=== PATIENT | female | born 1970 | race Caucasian/White ===

== ENCOUNTER 2019-02-14 07:15 | Outpatient (CLI) | payer OTHER, SELFPAY ==
--- NOTE | 2019-02-14 07:11 | XR_ITS ---
WS: [id number] Right wrist, 3 views including navicular views, 02/14/2019 Clinical Data: PT FELL; C/O PAIN RT WRIST -DIFFICULTY WITH FLEXION Comparison: None. Findings: No fractures or dislocations are seen. The carpal bones are intact. There is no soft tissue swelling. The distal radius and ulna are not remarkable. XR/XR wrist RT min 3V* [id number] Impression: Negative right wrist.
--- NOTE | 2019-02-14 14:14 | W.ED.GENADLT ---
[facility] ED PFSH: Statuses (acute, chronic, etc) shown below reflect problem list status as previously entered and may not be historically accurate Medical History (Updated 02/14/19 @ 09:35 by Rehana Tatum MD) Depression (Acute) GERD (gastroesophageal reflux disease) (Acute) Hypertension (Acute) Obesity (Acute) Surgical History (Updated 02/14/19 @ 09:35 by Rehana Tatum MD) History of cholecystectomy (Acute) History of incision and drainage (Acute) perianal abscess, subsequent fistulatomy History of toe surgery (Acute) left 2nd Hx of arthroscopic knee surgery (Acute) bilateral S/P ACL reconstruction (Acute) bilateral Family History (Updated 02/14/19 @ 09:36 by Rehana Tatum MD) Brother Cancer, Onset Age: 40 testicular Father Cancer, Onset Age: 67 colon Lung disease copd Diabetes type 2 Hyperlipidemia Hypertension Mother Stroke Hyperlipidemia Hypertension Social History (Updated 02/14/19 @ 09:38 by Rehana Tatum MD) Smoking and tobacco status: current every day smoker cigarettes Alcohol intake: former Year of sobriety/quit date alcohol: 2012 Household members: spouse Housing: House Marital status: Course ED course: 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 The distal radius appears intact there is a vague lucency in the body of the navicular concerning for a fracture. She does not have significant pain with palpation of the anatomical snuffbox but has severe pain with axial loading of the thumb. Recommend that she use a thumb spica splint and be seen by Ortho she may need a CT or MRI will make arrangements like texted Dr. Bray who responded and she will contact Dr. Bradshaw to make an appointment at their office to provide definitive care. Discharge Plan Discharge Prescriptions: No Action losartan 100 mg tablet 100 mg PO ONCE RF: 0 spironolacton-hydrochlorothiaz [Aldactazide] 25-25 mg tablet 1 tab PO ONCE RF: 0 Dexilant 60 mg capsule,biphase delayed releas 60 mg PO ONCE RF: 0 escitalopram oxalate 20 mg tablet 20 mg PO ONCE RF: 0 epinephrine 0.3 mg/0.3 mL auto-injector 0.3 mg IM ONCE PRNRF: 0 (DME) FAST FORM THUMB SPICA SPLINT Qty: 1 RF: 0 Coding Level of Care Code ED Translator Interpreter for Marilyn Sampson
== END 2019-02-14 07:16 | disposition home or self-care (01) ==
PROVIDERS: Family Provider Internal Medicine; Visit Provider Family Medicine
DX: M25.531 Pain in right wrist (principal)
CPT/HCPCS: 73110

== ENCOUNTER 2019-02-14 11:35 | Outpatient (CLI) | payer OTHER, SELFPAY | END 2019-02-14 11:36 | disposition home or self-care (01) | LOC: SPT 11:36 | PROVIDERS: Family Provider Internal Medicine; PCP Psychiatry & Neurology Neurology; Visit Provider Specialist | DX: Z46.89 Encounter for fitting and adjustment of other specified devices (principal) | CPT/HCPCS: L3982 ==

== ENCOUNTER 2019-02-21 08:06 | Outpatient (CLI) | payer OTHER, SELFPAY ==
--- NOTE | 2019-02-21 08:00 | MR_ITS ---
WS: [id number] INDICATION: Right wrist pain fall. TECHNIQUE: MRI of the right wrist without gadolinium enhancement. Coronal T1, PD, STIR, 3-D FSPGR, ax ial T1, and sagittal T1 imaging was obtained. Axial PD and T2 imaging with fat saturation technique. Navicular displaced views. FINDINGS: Distal radius is normal in appearance. Well-corticated chronic ulnar styloid process fractu re. No edema in the Distal radius or radial styloid. Scaphoid is normal in appearance. No evidence of scaphoid fracture. No edema in the scaphoid. Scapholunate interval measures approximately 2.2 mm. No evidence of scapholunate ligamentous edema or injury. Small amount of edema in the underlying dorsal subcutaneous soft tissues at the area of palpable marker. This is just superficial to the capitate. Associated edema in the extensor retinaculum and dorsal intercarpal ligament likely due to contusion. Normal underlying bone marrow signal in the capitate. Radial collateral ligament and ulnar collateral ligaments appear intact. Normal extensor carpi ulnari s. Mild degenerative changes involving the proximal and distal carpal row. Carpal tunnel is normal in appearance. Normal extensor and flexor compartment tendons. Proximal metacarpals appear normal. No b one marrow edema. MR/MR wrist RT wo con* [id number] IMPRESSION: 1. No evidence of distal radial or scaphoid fracture. No edema within the sca phoid. 2. Mild widening of the scapholunate interval measuring 2.2 mm although no yasmine dence of ligamentous injury or edema. 3. Edema along the extensor retinaculum and dorsal intercarpal ligament and ov erlying subcutaneous soft tissues at the level of the capitate likely due to co ntusion. Bone marrow signal in the capitate appears normal. This is in the area of palpable marker. 4. Mild cystic degenerative changes in the proximal and distal carpal row. 5. Well-corticated chronic ulnar styloid process fracture.
== END 2019-02-21 08:07 | disposition home or self-care (01) ==
PROVIDERS: Family Provider Internal Medicine; PCP Internal Medicine; Visit Provider Orthopaedic Surgery
DX: M19.031 Primary osteoarthritis, right wrist (principal); M84.431A Pathological fracture, right ulna, initial encounter for fracture; M25.531 Pain in right wrist; R60.9 Edema, unspecified
CPT/HCPCS: 73221

== ENCOUNTER → 2019-04-11 12:11 | Outpatient (BNVA) | payer OTHER, SELFPAY | PROVIDERS: Family Provider Internal Medicine; PCP Internal Medicine; Visit Provider Family Medicine | DX: E11.9 Type 2 diabetes mellitus without complications (principal); I10 Essential (primary) hypertension; K21.9 Gastro-esophageal reflux disease without esophagitis; F33.42 Major depressive disorder, recurrent, in full remission; F17.219 Nicotine dependence, cigarettes, with unspecified nicotine-induced disorders | CPT/HCPCS: 82044 ==

== ENCOUNTER → 2019-05-14 09:00 | Outpatient (BNVA) | payer OTHER, SELFPAY | PROVIDERS: Family Provider Internal Medicine; PCP Internal Medicine; Visit Provider Family Medicine | DX: Z12.31 Encounter for screening mammogram for malignant neoplasm of breast (principal); I10 Essential (primary) hypertension; Z01.419 Encounter for gynecological examination (general) (routine) without abnormal findings; E55.9 Vitamin D deficiency, unspecified | CPT/HCPCS: 80053; 80061; 82306; 85025; 88175 ==

== ENCOUNTER → 2019-08-06 13:59 | Outpatient (BNVA) | payer OTHER, SELFPAY | PROVIDERS: Family Provider Internal Medicine; PCP Internal Medicine; Visit Provider Family Medicine | DX: E55.9 Vitamin D deficiency, unspecified (principal); E78.5 Hyperlipidemia, unspecified | CPT/HCPCS: 80053; 82306 ==

== ENCOUNTER 2020-04-27 02:01 | Outpatient (CLI) | payer OTHER, SELFPAY ==
[2020-04-27 02:50] LABS: HIV 1 & 2 Antibody Non-Reactive (Non-Reactiv); HIV 1 & 2 Antigen Non-Reactive (Non-Reactiv)
[2020-04-27 03:01] LABS: Hepatitis A Antibody IgM Non-Reactive (Nonreactive); Hepatitis B Core IgM Non-Reactive (Nonreactive); Hepatitis B Surface Antigen Non-Reactive (Nonreactive); Hepatitis C Virus Antibody Non-Reactive (Nonreactive)
== END 2020-04-27 02:02 | disposition home or self-care (01) ==
LOC: LAB 02:07
PROVIDERS: PCP Internal Medicine; Visit Provider Hospitalist
DX: Z20.9 Contact with and (suspected) exposure to unspecified communicable disease (principal)
CPT/HCPCS: 80074; 87806

== ENCOUNTER 2020-10-26 14:31 | Outpatient (CLI) | payer OTHER, SELFPAY ==
[2020-10-27 15:25] LABS: Coronavirus Test Green County Not Detected
== END 2020-10-26 14:32 | disposition home or self-care (01) ==
LOC: LAB 14:34
PROVIDERS: PCP Internal Medicine; Visit Provider Family Medicine
DX: R05 Cough (principal); J06.9 Acute upper respiratory infection, unspecified
CPT/HCPCS: 87635

== ENCOUNTER 2020-12-23 10:24 | Outpatient (CLI) | payer OTHER, SELFPAY ==
--- NOTE | 2020-12-23 10:30 | MM_ITS ---
WS: [id number] Exam: [place] [id number] Date/Time of Exam: 12/23/2020 10:34 AM Reason For Exam: screening mammogram VIEWS: MLO and CC views both breasts. Comparison made with prior exam of 09/08/2014. Findings: There was no sign of mass, architectural distortion or suspicious calcification in either breast. Fa tty MM/[place] [id number] Impression: BI-RADS: 2-Benign FOLLOW-UP: 1 Year Follow-up This mammogram was also analyzed by the Computer Aided Detection System R2 Imag e Medical Data Analyst.
== END 2020-12-23 10:25 | disposition home or self-care (01) ==
LOC: RADSHAW 10:26
PROVIDERS: PCP Family Medicine; Visit Provider Family Medicine
DX: Z12.31 Encounter for screening mammogram for malignant neoplasm of breast (principal)
CPT/HCPCS: 77067

== ENCOUNTER 2020-12-30 11:15 | Outpatient (CLI) | payer OTHER, SELFPAY ==
--- NOTE | 2020-12-30 11:20 | CT_ITS ---
WS: [id number] LDCT LUNG CANCER SCREENING HISTORY: LOW DOSE CT SCREENING TECHNIQUE: Axial imaging performed from the apices to 1 cm below the costophrenic angles. Coronal and sagittal reformats are submitted with axial MIP series. All CT scans at [facility] use at least one of these dose optimization techniques: automated exposure control; mA and/or kV adjustment per patient size (includes targeted exams where dose is matched to clinical indication); or iterativ e reconstruction. DLP: 61.36 mGy.cm DIvol: 1.58 mGy,1.58 mGy COMPARISON: None available. Diagnostic quality: Satisfactory Lung Nodules: 4 mm nodule in the posterior RIGHT lower lobe, image 127 of series 3. There is also a b enign granuloma and in the RIGHT lower lobe. Lungs: Normally aerated lungs. No effusion. Heart: Normal size heart. No pericardial effusion. Other findings: Minimal atherosclerotic plaque within the aorta. Small hiatal hernia. Prior cholecyst ectomy. CT/CT lung screening [id number] IMPRESSION: LUNG-RADS: 3-Probably Benign FOLLOW UP: 6 Month LDCT OTHER FINDINGS (S MODIFIER): None.
== END 2020-12-30 11:16 | disposition home or self-care (01) ==
PROVIDERS: PCP Family Medicine; Visit Provider Family Medicine
DX: Z12.2 Encounter for screening for malignant neoplasm of respiratory organs (principal); F17.219 Nicotine dependence, cigarettes, with unspecified nicotine-induced disorders; K44.9 Diaphragmatic hernia without obstruction or gangrene; Z90.49 Acquired absence of other specified parts of digestive tract
CPT/HCPCS: 71271

== ENCOUNTER 2021-11-26 10:18 | Outpatient (CLI) | payer OTHER, SELFPAY ==
[2021-11-26 11:07] LABS: Basophils % 0.4 %; Eosinophils # 0.1 10^3/uL (0.0-0.8); Eosinophils % 1.2 %; Hematocrit 41.8 % (37.0-47.0); Hemoglobin 14.3 g/dL (11.5-15.3); Lymphocytes # 1.3 10^3/uL (0.8-4.8); Lymphocytes % 19.2 %; Mean Corpuscular HGB Conc 34.2 g/dL (30.0-36.0); Mean Corpuscular Hemoglobin 31.6 pg (28.0-34.0); Mean Corpuscular Volume 92.5 fl (81-99); Mean Platelet Volume 8.8 fL (7.4-10.4); Monocytes # 0.4 10^3/uL (0.2-0.9); Monocytes % 5.8 %; Neutrophils # 4.92 10^3/uL (1.8-7.7); Neutrophils % 73.1 %; Nucleated Red Blood Cells % 0 %; Platelet Count 346 10^3/cmm (130-400); Red Blood Count 4.52 10^6/uL (4.1-5.3); White Blood Count 6.7 10^3/uL (4.0-10.0)
--- NOTE | 2021-11-26 11:15 | CT_ITS ---
WS: [id number] LDCT LUNG CANCER SCREENING HISTORY: F17.219 - Nicotine dependence, cigarettes, TECHNIQUE: Axial imaging performed from the apices to 1 cm below the costophrenic angles. Coronal and sagittal reformats are submitted with axial MIP series. All CT scans at [facility] use at least one of these dose optimization techniques: automated exposure control; mA and/or kV adjustment per patient size (includes targeted exams where dose is matched to clinical indication); or iterativ e reconstruction. DLP: 80.98 mGy.cm DIvol: Mean CTDIvol: 1.60 (mGy) COMPARISON: 12/30/2020 Diagnostic quality: Satisfactory Lung Nodules: No change in the noncalcified 4 mm subpleural nodule RIGHT lower lobe, image 173 of ser ies 4. There is an additional benign granuloma superior segment RIGHT lower lobe. The remaining lungs are clear. No additional nodules or mass. Mild paraseptal changes of emphysema RIGHT upper lobe. No endobronchial lesions. Heart: Normal size heart. No pericardial effusion. Other findings: Benign mediastinal or hilar calcified lymph nodes. Minimal atherosclerotic plaque in aorta. Prior cholecystectomy. Mild thoracolumbar scoliosis. CT/CT lung screening [id number] IMPRESSION: LUNG-RADS: 2-Benign Appearance or Behavior FOLLOW UP: 12 Month: Continue annual screening with LDCT OTHER FINDINGS (S MODIFIER): None.
[2021-11-26 11:22] LABS: Estmated Average Glucose 126
[2021-11-26 11:27] LABS: Alanine Aminotransferase 15 U/L (0-33); Alkaline Phosphatase 92 U/L (35-105); Chloride 101 mmol/L (98-107); Cholesterol 153 mg/dL (0-200); HDL Cholesterol 51 mg/dL (60-100); Potassium 4.6 mmol/L (3.5-5.1); Sodium 139 mmol/L (136-145)
[2021-11-26 11:45] LABS: LDL Cholesterol Calculated 90 mg/dL (50-129); LDL HDL Ratio 1.76 RATIO (0.00-3.22); Triglycerides 60 mg/dL (0-150)
[2021-11-26 12:10] LABS: Anion Gap 17.6 (5-19); Aspartate Amino Transferase 17 U/L (0-32); Blood Urea Nitrogen 11 mg/dL (6-20); Carbon Dioxide 25 mmol/L (22-29); Globulin 2.9 g/dL (1.3-4.6); Glomerular Filtration Rate 105.4 mL/min (90-130); Glucose 124 mg/dL (65-115); Osmolality Calculated 289 mOsm/kg (285-295); Total Bilirubin 0.3 mg/dL (0.15-1.2); Total Protein 6.9 g/dL (6.6-8.7)
== END 2021-11-26 10:19 | disposition home or self-care (01) ==
LOC: RAD 10:19
PROVIDERS: PCP Family Medicine; Visit Provider Family Medicine
DX: Z12.2 Encounter for screening for malignant neoplasm of respiratory organs (principal); F17.219 Nicotine dependence, cigarettes, with unspecified nicotine-induced disorders; Z13.6 Encounter for screening for cardiovascular disorders
CPT/HCPCS: 36415; 71271; 80053; 80061; 83036; 85025

== ENCOUNTER 2022-02-02 14:00 | Outpatient (CLI) | payer OTHER, SELFPAY | END 2022-02-02 14:01 | disposition home or self-care (01) | LOC: SLEEP 02-03 13:13 | PROVIDERS: PCP Family Medicine; Visit Provider Family Medicine | DX: G47.33 Obstructive sleep apnea (adult) (pediatric) (principal); K13.79 Other lesions of oral mucosa | CPT/HCPCS: G0399 ==

== ENCOUNTER → 2022-07-26 08:54 | Outpatient (BNVA) | payer OTHER, SELFPAY | PROVIDERS: PCP Family Medicine; Visit Provider Family Medicine | DX: R73.03 Prediabetes (principal) | CPT/HCPCS: 80053; 83036 ==

== ENCOUNTER 2023-07-27 09:07 | Outpatient (CLI) | payer OTHER, SELFPAY ==
[2023-07-27 09:44] LABS: Basophils # 0.1 10^3/uL (0.0-0.1); Basophils % 0.8 %; Eosinophils # 0.1 10^3/uL (0.0-0.8); Hematocrit 43.7 % (36-47); Lymphocytes # 1.3 10^3/uL (0.8-4.8); Mean Corpuscular HGB Conc 33.4 g/dL (30-55); Mean Corpuscular Volume 95.8 fl (85-98); Mean Platelet Volume 8.4 fL (7.4-10.4); Monocytes # 0.5 10^3/uL (0.2-0.9); Monocytes % 5.7 %; Neutrophils # 6.73 10^3/uL (1.8-7.7); Neutrophils % 77.3 %; Nucleated Red Blood Cells % 0 %; Platelet Count 331 10^3/cmm (157-399); Red Blood Count 4.56 10^6/uL (3.85-5.65); Red Cell Distribution Width 12.9 % (12.1-15.1); White Blood Count 8.72 10^3/uL (3.29-11.43)
[2023-07-27 10:02] LABS: Alanine Aminotransferase 18 U/L (0-33); Albumin Level 4.2 g/dL (3.5-5.2); Alkaline Phosphatase 97 U/L (35-105); Anion Gap 16.2 (5-19); Aspartate Amino Transferase 16 U/L (0-32); Blood Urea Nitrogen 14 mg/dL (6-20); Carbon Dioxide 26 mmol/L (22-29); Chloride 103 mmol/L (98-107); Chol HDL Ratio 2.71 mg/dL (0.0-4.40); Cholesterol 160 mg/dL (0-200); Globulin 3.2 g/dL (1.3-4.6); Glomerular Filtration Rate 104.6 mL/min (90-130); Glucose 120 mg/dL (65-115); HDL Cholesterol 59 mg/dL (60-100); LDL Cholesterol Calculated 87 mg/dL (50-129); LDL HDL Ratio 1.47 RATIO (0.00-3.22); Osmolality Calculated 294 mOsm/kg (285-295); Potassium 4.2 mmol/L (3.5-5.1); Sodium 141 mmol/L (136-145); Total Bilirubin 0.4 mg/dL (0.15-1.2); Total Protein 7.4 g/dL (6.6-8.7); Triglycerides 72 mg/dL (0-150)
[2023-07-27 10:17] LABS: 25 Hydroxy Vitamin D 28 ng/mL (30-100)
[2023-07-27 10:20] LABS: Estmated Average Glucose 120; Hemoglobin A1C 5.8 % (4.0-6.0)
== END 2023-07-27 09:08 | disposition home or self-care (01) ==
LOC: LAB 09:08
PROVIDERS: PCP Family Medicine; Visit Provider Family Medicine
DX: E55.9 Vitamin D deficiency, unspecified (principal); I10 Essential (primary) hypertension; R73.03 Prediabetes; Z13.6 Encounter for screening for cardiovascular disorders; E66.01 Morbid (severe) obesity due to excess calories; Z68.41 Body mass index [BMI] 40.0-44.9, adult
CPT/HCPCS: 36415; 80053; 80061; 82306; 83036; 85025

== ENCOUNTER 2023-08-14 11:06 | Outpatient (CLI) | payer OTHER, SELFPAY ==
--- NOTE | 2023-08-14 11:15 | CT_ITS ---
WS: [id number] LDCT LUNG CANCER SCREENING TECHNIQUE: Noncontrast CT of the chest with coronal and sagittal reformatted images. CLINICAL INFORMATION: screening COMPARISON: CT 11/26/2021 DLP: 103.61 mGy.cm DIvol: Mean CTDIvol: 2.50 (mGy) All CT scans at [facility] use at least one of these dose optimization techniques: automat ed exposure control; mA and/or kV adjustment per patient size (includes targeted exams where dose is matched to clinical indication); or iterative reconstruction. FINDINGS: Stable noncalcified 4 mm subpleural nodule RIGHT lower lobe. Calcified granuloma superior s egment RIGHT lower lobe. No new suspicious pulmonary parenchymal abnormalities. Subsegmental atelecta sis RIGHT lower lobe. Mild emphysematous changes in the lung apices. Normal caliber thoracic aorta. Minimal aortic calcification. Calcified RIGHT hilar lymph nodes. No me diastinal or hilar lymphadenopathy. No axillary lymphadenopathy. Adrenal glands are normal. Normal GE junction. Prior cholecystectomy. Mild thoracolumbar curve. CT/CT lung screening [id number] IMPRESSION: LUNG-RADS: 2-Benign Appearance or Behavior FOLLOW UP: 12 Month: Continue annual screening with LDCT
== END 2023-08-14 11:07 | disposition home or self-care (01) ==
LOC: RAD 11:06
PROVIDERS: PCP Family Medicine; Visit Provider Family Medicine
DX: F17.219 Nicotine dependence, cigarettes, with unspecified nicotine-induced disorders (principal); R91.8 Other nonspecific abnormal finding of lung field
CPT/HCPCS: 71271

== ENCOUNTER → 2023-08-16 13:54 | Outpatient (CLI) | payer OTHER, SELFPAY ==
--- NOTE | 2023-08-16 14:00 | MM_ITS ---
WS: [id number] BILATERAL 3D TOMOSYNTHESIS DIGITAL SCREENING MAMMOGRAPHY WITH CAD CLINICAL INFORMATION: screening HISTORY: Screening mammogram. No current complaints. COMPARISON: 2020 TECHNIQUE: Bilateral CC and MLO views. FINDINGS: Scattered fibroglandular densities bilaterally. No suspicious focal mass, asymmetry, calcifications, or architectural distortion. No evidence of malignancy. MM/[place] [id number] IMPRESSION: BI-RADS: 1-Negative FOLLOW UP: 1 Year Follow-up Recommend return to annual screening mammography.
== END | disposition home or self-care (01) ==
LOC: RAD 13:53
PROVIDERS: PCP Family Medicine; Visit Provider Family Medicine
DX: Z12.31 Encounter for screening mammogram for malignant neoplasm of breast (principal); R92.323 Mammographic fibroglandular density, bilateral breasts
CPT/HCPCS: 77063; 77067